=== PATIENT | female | born 1985 | race Caucasian/White ===

== ENCOUNTER → 2017-12-27 | Outpatient (CLI) | payer OTHER | LOC: FIMAGING 11:44 | PROVIDERS: ATTEND Obstetrics & Gynecology | DX: Z36.4 Encounter for antenatal screening for fetal growth retardation (principal); Z3A.20 20 weeks gestation of pregnancy; O34.219 Maternal care for unspecified type scar from previous cesarean delivery ==

== ENCOUNTER → 2018-03-07 | Outpatient (CLI) | payer OTHER | LOC: FIMAGING 12:17 | PROVIDERS: ATTEND Obstetrics & Gynecology | DX: O09.293 Supervision of pregnancy with other poor reproductive or obstetric history, third trimester (principal); Z3A.30 30 weeks gestation of pregnancy ==

== ENCOUNTER 2018-03-24 13:00 | Day surgery (SDC) | payer OTHER ==
[2018-03-24] MEDS ORDERED: ceFAZolin 2 GM/DEXTROSE 100 ML IV ONE (13:18)
[2018-03-24] MEDS ORDERED: LR 1,000 ML IV SCH (13:18)
--- NOTE | 2018-03-24 13:20 | PDHPUP ---
History & Physical Update H&P update statement: This history and physical update is based on an assessment of the patient which was completed after admission or registration (within 24 hours), but prior to the surgery/procedure. H&P update: H&P reviewed & patient examined, no change in patient's condition since H&P completed
[2018-03-24] MEDS ORDERED: BUPIVACAINE/EPI 0.5% 30 ML SDV ONE (13:24)
[2018-03-24] MEDS ORDERED: BUPIVACAINE 0.5% 30 ML SDV ONE (13:24)
[2018-03-24 13:33] LABS: PLATELET COUNT 167 10^3/uL (150-400)
[2018-03-24] MEDS ORDERED: PROPOFOL 200 MG/20 ML VIAL ONE ×2 (13:35)
[2018-03-24] MEDS ORDERED: BUPIVACAINE/EPI 0.25% 30 ML SDV ONE (13:36)
[2018-03-24] MEDS ORDERED: PROPOFOL/EMULSION 500 MG/50 ML BOTTLE IV ONE (13:36)
[2018-03-24] MEDS ORDERED: LIDOCAINE 2% 5 ML SDV ONE (13:40)
--- NOTE | 2018-03-24 13:42 | PDANEPAE ---
ANE History of Present Illness right knee scope in 32wk pt ANE Past Medical History - Cardiovascular History Hx Hypertension: No Hx Arrhythmias: No Hx Chest Pain: No Hx Coronary Artery / Peripheral Vascular Disease: No Hx CHF / Valvular Disease: No Hx Palpitations: No - Pulmonary History Hx COPD: No Hx Asthma/Reactive Airway Disease: No Hx Recent Upper Respiratory Infection: No Hx Oxygen in Use at Home: No Hx Sleep Apnea: No Sleep Apnea Screening Result - Last Documented: Negative - Neurologic History Hx Cerebrovascular Accident: No Hx Seizures: No Hx Dementia: No - Endocrine History Hx Diabetes: No - Renal History Hx Renal Disorders: No - Liver History Hx Hepatic Disorders: No - Neurological & Psychiatric Hx Hx Neurological and Psychiatric Disorders: No Neurological / Psychiatric History Comment: depression/anxiety - Cancer History Hx Cancer: No - Congenital Disorder History Hx Congenital Disorders: Yes Congenital History Comment: low BP post procedure. family melanoma,prostate - GI History Hx Gastrointestinal Disorders: Yes Gastrointestinal History Comment: reflux - Other Health History Other Health History: congested possible touch of cold. anemia. 32 wks - Chronic Pain History Chronic Pain: No - Surgical History Prior Surgeries: wisdom teeth. needed emergency 1st baby ANE Review of Systems Review of systems is: negative Review of Systems: - Exercise capacity METS (RN): 4 METS ANE Patient History - Allergies Allergies/Adverse Reactions: Sulfa (Sulfonamide Antibiotics) Allergy (Verified 03/23/18 15:27) Rash - Home Medications Home medications: home medication list seen and reviewed Home Medications: Aspirin EC 81 mg (*) 03/23/18 [Last Taken 03/22/18] Omeprazole 03/23/18 [Last Taken 03/24/18 10:00] Zoloft 50mg (*) 03/23/18 [Last Taken 03/24/18 10:00] - NPO status NPO Since - Liquids (Date): 03/24/18 NPO Since - Liquids (Time): 11:30 NPO Since - Solids (Date): 03/23/18 NPO Since - Solids (Time): 20:00 - Anes Hx Anes Hx: no prior problems - Smoking Hx Smoking Status: Never smoked ANE Labs/Vital Signs - Labs Result Diagrams: 03/24/18 13:20 - Vital Signs Blood Pressure: 107/68 Heart Rate: 79 Respiratory Rate: 16 O2 Sat (%): 99 Height: 168 cm Weight: 70 kg ANE Physical Exam - Airway Neck exam: FROM Mallampati Score: Class 1 Mouth exam: normal dental/mouth exam - Pulmonary Pulmonary: no respiratory distress - Cardiovascular Cardiovascular: regular rate and rhythym - ASA Status ASA Status: II ANE Anesthesia Plan Anesthesia Plan: spinal
[2018-03-24] MEDS ORDERED: ROPIVACAINE IU ONE (15:30)
[2018-03-24] MEDS ORDERED: ALBUTEROL 3 ML DEYVIAL IH PRN (15:34)
[2018-03-24] MEDS ORDERED: ACETAMINOPHEN 500 MG TAB PO PRN (15:34)
[2018-03-24] MEDS ORDERED: ONDANSETRON 4 MG/2 ML VIAL IVP PRN (15:34)
[2018-03-24] MEDS ORDERED: LR 500 ML IV PRN (15:34)
[2018-03-24] MEDS ORDERED: METOCLOPRAMIDE 10 MG/2 ML VIAL IVP PRN (15:34)
[2018-03-24] MEDS ORDERED: NALOXONE HCL 0.4 MG/ML INJ IVP PRN (15:34)
[2018-03-24] MEDS ORDERED: HYDROCODONE/APAP 5/325 TAB PO PRN (15:34)
[2018-03-24] MEDS ORDERED: PROMETHAZINE HCL 25 MG/ML INJ IVP PRN (15:34)
[2018-03-24] MEDS ORDERED: oxyCODONE IR 5 MG TAB PO PRN (15:34)
--- NOTE | 2018-03-24 15:34 | POSTANESTH ---
Post Anesthetic Evaluation Cardiovascular Status: Normal, Stable Respiratory Status: Normal, Stable Level of Consciousness/Mental Status: Can Participate in Eval, Alert and Oriented Pain Control: Adequate, Prn Tx Ordered Nausea/Vomiting Control: Adequate, Prn Tx Ordered Complications Possibly Related to Anesthesia: None Noted
--- NOTE | 2018-03-24 16:05 | POSTOPPROG ---
Post Op Note Date of Operation: 03/24/18 Surgeon: Darren Chung Anesthesiologist: MD Leora Anesthesia: Spinal Pre-op Diagnosis: R knee bucket gail medial meniscus tear Post-op Diagnosis: same Procedure: R knee arthroscopy, medial meniscus repair Inf/Abcess present in the surg proc area at time of surgery?: No EBL: Minimal
[2018-03-24 18:50] VITALS: BP 101/61
--- NOTE | 2018-03-29 17:50 | GOP ---
DATE OF OPERATION: 03/24/2018 SURGEON: Darren Chung MD ANIMAL RESCUER: None. ANESTHESIA: Spinal with mild IV sedation. PREOPERATIVE DIAGNOSIS: Right knee locked bucket-handle medial meniscus tear. POSTOPERATIVE DIAGNOSIS: Right knee locked bucket-handle medial meniscus tear. PROCEDURE PERFORMED: Right knee medial meniscus repair. FINDINGS: Exam under anesthesia revealed 5-10 degrees short of full extension with full flexion to 1 40. She is otherwise ligamentously stable. Diagnostic arthroscopy revealed intact cartilage in all 3 compartments and intact lateral meniscus and ACL. She did have a locked bucket handle meniscus in the intercondylar notch. This involved the posterior horn up through the anterior horn. The menisca l root itself was intact. SPECIMENS: None. ESTIMATED BLOOD LOSS: Minimal. INDICATIONS: The patient is a 32-year-old female in her 3rd trimester of . She noted click ing and mechanical symptoms prior to getting ; however, slipped on some ice, tweaking her kne e, which cause some pain, but was still able to ambulate. Later on that day, she bent down to pick u p her toddler and felt something snap and shift inside her knee, and then she was unable to fully ext end her knee. Clinically, the patient had medial joint line tenderness and mechanical block to full extension. MRI revealed a locked bucket-handle medial meniscus tear inhibiting motion, as well as ma loi ambulation difficult. We discussed treatment options including observation until the patient de livers versus acute surgery despite the risks of possibly inducing . It would be ve ry difficult and would not recommend waiting 2 months with a locked bucket handle meniscus tear at th e age of 32. The patient verbalized the understanding of the risks and benefits of the procedure, an d signed informed consent prior to the procedure. DESCRIPTION OF PROCEDURE: The patient was seen in the holding area. Operative site was signed. H a nd P verified and updated accordingly. heart tones and monitoring took place for 15 minutes pr ior to going back to the operating room. The patient was then taken operating room. Spinal anesthet ic was provided. She was placed in the supine position with a bump under her right hip for a slightl y decubitus position. Tourniquet was placed around the operative thigh. Operative lower extremity w as prepped and draped in the usual sterile fashion. Operative site was confirmed by signature. Time -out performed. Allergies reviewed. Antibiotics administered. Leg was exsanguinated with an Esmarch. Tourniquet inflated to 250 mmHg. Medial and lateral portals were marked out and infiltrated with 0.25% Marcaine with epinephrine. An 11 blade was used to establ norma the lateral portal. Arthroscope was introduced in the suprapatellar pouch. Diagnostic arthrosco py was performed. The locked bucket handle was immediately encountered in the intercondylar notch. Medial meniscus repair: A ball rasp was used to rasp the [place] footprint of the meniscus against ca psule to create bleeding for healing. The meniscus was reduced with a probe. Golden [employer] Nephew all-i nside FasT-Fix anchors were used in a vertical mattress orientation in the posterior horn of the medi al meniscus. Subsequently, inside-out suture fixation technique was used with a zone-specific device in the body and a portion of the anterior horn of the medial meniscus. Small incisions were made at the exit of the inside-out sutures. These were tied over the capsule with the knee in full extensio n. A probe was placed in to confirm stability of the medial meniscus. All instruments were then wit hdrawn from the joint. 30 cc of ropivacaine without epinephrine was injected into the joint. Portal s were closed with 3-0 Monocryl, as well as the exiting meniscal repair sutures. Dermabond and Steri -Strips were applied. The was then taken to the recovery room in stable condition. At the end the c ase, all surgical counts were correct. All critical portions of procedure performed by , Dr. Chung. This operative note was created by , and I was immediately available for emergency cross-coverage at all times. DRAINS: None COMPLICATIONS: None. IMPLANTS: Include [employer]hew FasT-Fix x3 and inside-out #2 FiberWire x3. TOURNIQUET TIME: 74 minutes. POSTOPERATIVE INSTRUCTION: Weightbearing as tolerated with the brace locked in full extension, unloc loi coming out of it to work on gentle range of motion immediately. /[id number]/MODL
== END 2018-03-24 19:40 | disposition home or self-care (01) ==
LOC: FSGY 13:00
PROVIDERS: ATTEND Orthopaedic Surgery
PROC: 0SBC4ZZ Excision of Right Knee Joint, Percutaneous Endoscopic Approach (ICD-10-PCS; principal; 2018-03-24 14:30)
DX: S83.211A Bucket-handle tear of medial meniscus, current injury, right knee, initial encounter (principal); O9A.213 Injury, poisoning and certain other consequences of external causes complicating pregnancy, third trimester; X50.9XXA Other and unspecified overexertion or strenuous movements or postures, initial encounter; O99.013 Anemia complicating pregnancy, third trimester; D64.9 Anemia, unspecified; Z3A.32 32 weeks gestation of pregnancy
CPT/HCPCS: J0690; J2704; J2795; L1832

== ENCOUNTER 2018-05-08 15:39 | Inpatient (IN) | payer OTHER ==
--- NOTE | 2018-05-04 12:51 | GHP ---
[f rep st] HISTORY AND PHYSICAL DATE OF ADMISSION: 05/09/2018 ADMITTING DIAGNOSES: 1. Intrauterine at 39 weeks. 2. Prior , declines trial of labor. 3. Umbilical vein varix. HISTORY OF PRESENT ILLNESS: The patient is a 32-year-old, 2, para 1-0-0 -1 at 39 weeks with an estimated due date of 05/16/2018 by last menstrual period 08/09/2017 and consistent with ultrasound done at 8 weeks and 2 days. The patient presents for a scheduled repeat section. The patient states good movement noted. She denies any leakage of fluid, vaginal bleeding or any contractions at this time. The patient has good care at [facility], and presented in her first trimester. is complicated by a previous which was done emergently secondary to intolerance to labor. The patient was induced at 38 weeks and 5 days secondary to IUGR. The patient has a large keloid scar from her previous C- section and wants the keloid scar removed at time of repeat . The patient had a level 2 ultrasound done in the which was normal and a posterior placenta. The patient has a history of OCD and anxiety disorder which was stable on 50 mg of Zoloft throughout the . She has been followed throughout by her psychiatrist who recommended the dose of Zoloft be increased to 75 mg secondary to a history of depression. She had serial growth scans done in the and most recent growth scan at 38 weeks revealed an estimated weight in 43rd percentile with normal fluid. The patient had subclinical hypothyroid with the first and thyroid function tests were checked with initial labs and normal. The patient developed anemia of and is tolerating iron. At 30 weeks , the patient underwent arthroscopic meniscus repair with no issues. At 35 weeks, the patient had an ultrasound done showing an umbilical vein varix. Patient saw [facility], who recommended a followup ultrasound, twice weekly NSTs, which have been reassuring and delivery at 39 weeks. The patient received both the flu vaccine as well as Tdap. GBS culture is negative. PAST OB HISTORY: In November 2015, she delivered a viable female infant at 38 weeks 5 days via . She was induced for IUGR and had emergent C- section secondary to intolerance to labor. PAST DIRECTOR NICU HISTORY: Age of menarche 16. Menstrual cycles are every 31 days for 5- 7 days. The patient denies a history of abnormal Pap smears or exposure to any sexually transmitted diseases. CURRENT MEDICATIONS: vitamins, Zoloft 50 mg, Omeprazole 20 mg, and an iron supplement. ALLERGIES: Sulfa, as a child she had a rash. PAST MEDICAL HISTORY: OCD, anxiety disorder, history of depression, and GERD. PAST SURGICAL HISTORY: in 2016 and a tonsillectomy as a child. FAMILY HISTORY: Maternal grandmother, melanoma. Father, prostate cancer. SOCIAL HISTORY: Patient is and lives with her and their daughter. She is in [place]. She denies any alcohol, tobacco or illicit drug use currently. LABS: First trimester H and H, 11.5 and 32.5, platelets 191. Blood type A positive, antibody negative. RPR nonreactive. Rubella immune. Hepatitis B surface antigen negative. HIV negative. TSH in 1st trimester 1.5. Varicella immune. UA, urine culture and UDS all negative. Pap smear, gonorrhea, and chlamydia cultures negative. Innatal screen normal. Single AFP negative. Third trimester H and H, 11.1 and 32.9. One hour Glucola 78. GBS culture is negative. REVIEW OF SYSTEMS: A 10-point review of systems is negative, pertinent positives noted in the HPI. PHYSICAL EXAMINATION: VITAL SIGNS: On admission vital signs are stable. Patient is afebrile. GENERAL: A well-nourished, well-developed female. Alert and oriented x3. No apparent distress. SKIN: Warm, dry without rash. NEURO: Grossly intact. CARDIOVASCULAR: Regular rate and rhythm. LUNGS: Clear to auscultation bilaterally. ABDOMEN: Soft, gravid, nontender. A Pfannenstiel incision that is well healed with a large keloid scar. PELVIC: Deferred. EXTREMITIES: Normal to inspection without calf tenderness or edema. ASSESSMENT/PLAN: The patient is a 32-year-old 2, para 1-0-0-1 at 39 weeks with a previous , declines a trial of labor, and umbilical vein varix. 1. Admit to Labor and Delivery for repeat and removal of keloid scar. 2. Surgical consents were on the chart and reviewed with the patient. Patient understands all risks of the surgery and wants to proceed. 3. Antibiotics [employer] consultant to operating room. 4. After removal of keloid scar, will inject Kenalog into skin incision to help with prevention of future keloid formation. 5. Sequential compression devices for deep venous thrombosis prophylaxis. 6. Will increase the Zoloft to 75 mg secondary to history of depression. /[id number]/MODL MTDD
[2018-05-08] MEDS ORDERED: LIDOCAINE 1% 300 MG/30 ML SDV SC PRN (15:56)
[2018-05-08] MEDS ORDERED: EPSOM SALT 454 GM TP PRN (15:56)
[2018-05-08] MEDS ORDERED: MISOPROSTOL 200 MCG TAB PR PRN (15:56)
[2018-05-08] MEDS ORDERED: IBUPROFEN 600 MG TAB PO PRN (15:56)
[2018-05-08] MEDS ORDERED: OLIVE OIL 118 ML BTL MISC PRN (15:56)
[2018-05-08] MEDS ORDERED: LR 1,000 ML IV PRN (15:56)
[2018-05-08] MEDS ORDERED: OXYTOCIN/RINGERS LACTATE 1,000 ML IV PRN (15:56)
[2018-05-08 16:50] LABS: PLATELET COUNT 154 10^3/uL (150-400)
[2018-05-08] MEDS ORDERED: ceFAZolin 2 GM/DEXTROSE 100 ML IV ONE (17:28)
[2018-05-08] MEDS ORDERED: LR 500 ML IV ONE (17:28)
[2018-05-08] MEDS ORDERED: AZITHROMYCIN IV 500 MG in NS 250 ML IV ONE (17:29)
[2018-05-08] MEDS ORDERED: LR 1,000 ML IV SCH (17:30)
[2018-05-08] MEDS ORDERED: TRIAMCINOLONE ACETONIDE 40 MG/ML VIAL IM ONE (17:31)
--- NOTE | 2018-05-08 17:49 | PDANEPAE ---
ANE History of Present Illness 32 to for c sx. Previous section now in labor Urgent per Dr Veronica MARTINES Past Medical History - Cardiovascular History Hx Hypertension: No Hx Arrhythmias: No Hx Chest Pain: No Hx Coronary Artery / Peripheral Vascular Disease: No Hx CHF / Valvular Disease: No Hx Palpitations: No - Pulmonary History Hx COPD: No Hx Asthma/Reactive Airway Disease: No Hx Recent Upper Respiratory Infection: No Hx Oxygen in Use at Home: No Hx Sleep Apnea: No Sleep Apnea Screening Result - Last Documented: Negative - Neurologic History Hx Cerebrovascular Accident: No Hx Seizures: No Hx Dementia: No - Endocrine History Hx Diabetes: No - Renal History Hx Renal Disorders: No - Liver History Hx Hepatic Disorders: No - Neurological & Psychiatric Hx Hx Neurological and Psychiatric Disorders: No Neurological / Psychiatric History Comment: depression/anxiety - Cancer History Hx Cancer: No - Congenital Disorder History Hx Congenital Disorders: Yes Congenital History Comment: low BP post procedure. family melanoma,prostate - GI History Hx Gastrointestinal Disorders: Yes Gastrointestinal History Comment: reflux - Other Health History Other Health History: congested possible touch of cold. anemia. 32 wks - Chronic Pain History Chronic Pain: No - Surgical History Prior Surgeries: wisdom teeth. needed emergency 1st baby ANE Review of Systems Review of Systems: - Exercise capacity METS (RN): 5 METS ANE Patient History - Allergies Allergies/Adverse Reactions: Sulfa (Sulfonamide Antibiotics) Allergy (Verified 03/23/18 15:27) Rash - Home Medications Home Medications: Omeprazole 03/23/18 [Last Taken 03/24/18 10:00] Zoloft 50mg (*) 03/23/18 [Last Taken 03/24/18 10:00] - NPO status NPO Since - Liquids (Date): 05/08/18 NPO Since - Liquids (Time): 14:30 NPO Since - Solids (Date): 05/08/18 NPO Since - Solids (Time): 12:00 - Anes Hx Anes Hx: no prior problems - Smoking Hx Smoking Status: Never smoked ANE Labs/Vital Signs - Labs Result Diagrams: 05/08/18 16:35 - Vital Signs Height: 5 ft 6.14 in Weight: 74 kg ANE Physical Exam - Airway Neck exam: FROM Mallampati Score: Class 2 Mouth exam: normal dental/mouth exam - Pulmonary Pulmonary: no respiratory distress - Cardiovascular Cardiovascular: regular rate and rhythym - ASA Status ASA Status: II, E ANE Anesthesia Plan Anesthesia Plan: spinal
[2018-05-08] MEDS ORDERED: morphINE PF 5 MG/10 ML INJ ONE (17:52)
[2018-05-08] MEDS ORDERED: OXYTOCIN 100 UNITS/10 ML VIAL ONE (17:53)
[2018-05-08] MEDS ORDERED: BUPIVACAINE/DEXTROSE 7.5MG/ML 2 ML SPINAL AMP SP ONE (17:55)
[2018-05-08] MEDS ORDERED: CITRIC ACID/SODIUM CITRATE 30 ML UDCUP PO ONE (17:58)
[2018-05-08] MEDS ORDERED: LR 500 ML IV SCH (18:00)
[2018-05-08] MEDS ORDERED: CITRIC ACID/SODIUM CITRATE 30 ML UDCUP ONE (18:01)
--- NOTE | 2018-05-08 18:01 | GHP ---
[f rep st] PREOP HISTORY AND PHYSICAL DATE OF ADMISSION: 05/08/2018 PREOPERATIVE DIAGNOSES: Intrauterine at 39 weeks gestation. Other preoperative diagnosis is history of previous low transverse section. She had a spontaneous rupture of membranes. Declines trial of labor. History of keloided scar from first section. Patient is a 32-year-old 2, para 1-0-0-1, who is 38-and-6/7-weeks gestation by last menstrual period of 08/09/2017, an estimated date of confinement of 05/16/2018. Patient has a history of a pr evious low transverse section which was done emergently for intolerance of labor. She is being induced for intrauterine growth restriction. Baby did not tolerate labor. She is a candid ate for a vaginal after section; however, she has declined. Patient was diagnosed wit h an umbilical artery varix at 34 weeks gestation. At 35 weeks gestation she saw [facility]. They said she is a candidate for a vaginal after section; however, due to her h istory of a previous section and recommending delivery by 39 weeks gestation, she had opted for a scheduled repeat low transverse section. Patient had spontaneous rupture of membranes this evening. A large amount of clear fluid was noted. Patient began having strong regular contrac tions but her cervix has not changed in the short period of time. After discussing risks and benefit s of vaginal after section versus repeat , patient and her have decid ed that they want to proceed with a repeat low transverse section. Risks and benefits have been extensively reviewed with the patient and patient has been properly consented. MEDICAL HISTORY: Significant for anxiety disorder, OCD, history of depression, gastroesop hageal reflux disease. MEDICATIONS: vitamins, Zoloft 50 mg, omeprazole 20 mg and an iron supplement. SURGICAL HISTORY: section in 2016, tonsillectomy as a child. ALLERGIES: Sulfa caused a rash as a child. SOCIAL HISTORY: Patient is . She denies tobacco, alcohol, or drug use. FAMILY MEDICAL HISTORY: Noncontributory. [employer]ER [employer]ASS HISTORY: Menarche 16. Cycles are every 31 days lasting 5-7 days. She is a 2, para 1 -0-0-1. In November 2015 she delivered a viable female infant at 38 weeks 5 days via . Sh e was induced for intrauterine growth restriction and had an emergency secondary to i ntolerance of labor. Patient denies any history of any abnormal Pap smears or sexually transmitted d iseases. REVIEW OF SYSTEMS: 10-point review of systems is negative with the exception of positive loss of flu id, positive contractions. There is positive movement. She denies any vaginal bleeding. She denies any headache or changes in vision. PHYSICAL EXAMINATION: VITAL SIGNS: Stable. GENERAL APPEARANCE: Alert and oriented x3. MUS[place] LETAL: Grossly intact. NEURO: Grossly intact. PSYCH: Appropriate affect. HEART: Regular. LUNG S: Clear to auscultation bilaterally. ABDOMEN: Gravid, nondistended, nontender. EXTREMITIES: Rev eal no calf tenderness or edema. PELVIC EXAM: She is fingertip and 50% effaced, and grossly rupture d. is in the vertex presentation and her heart tracing is category 1. LABS: Blood type B positive, antibody screen negative. GBS negative. HBsAg negative. HIV negative. Her 50 g glucose was 78. GBS is negative. ASSESSMENT AND PLAN: 32-year-old 2, para 1-0-0-1 at 38-and-6/7-weeks gestation with a histor y of a previous low transverse section and grossly ruptured. She declines trial of labor an d requests to proceed with a repeat low transverse section. Risks and benefits have been ex tensively reviewed with the patient. Patient has been properly consented. /[id number]/MODL
[2018-05-08] MEDS ORDERED: ONDANSETRON 4 MG/2 ML VIAL IVP PRN ×2 (18:28→18:41)
[2018-05-08] MEDS ORDERED: NALOXONE HCL 0.4 MG/ML INJ IVP PRN ×2 (18:28→18:41)
[2018-05-08] MEDS ORDERED: PHENYLEPHRINE HCL 100 MCG/ML SYR IVP PRN (18:41)
[2018-05-08] MEDS ORDERED: HYDROmorphONE/DILAUDID 1 MG/ML INJ IVP PRN (18:41)
[2018-05-08] MEDS ORDERED: fentaNYL 100 MCG/2 ML INJ IVP PRN (18:41)
--- NOTE | 2018-05-08 19:29 | OBDEL ---
Info Type: Repeat Presentation at Delivery: Vertex L&D Analgesia/Anesthesia Type: Spinal GBS+: No Intrapartum Medications: Discontinued Medications Generic Name Dose Route Start Last Admin Trade Name Angelica PRN Reason Stop Dose Admin Cefazolin Sodium/Dextrose 100 mls @ 200 mls/hr 05/08/18 17:28 05/08/18 17:54 Ancef IV 05/08/18 17:57 100 mls ONCALL ONE Administration Protocol Lactated Ringer's 500 mls @ 0 mls/hr 05/08/18 17:28 05/08/18 17:54 Lr IV 05/08/18 17:29 500 mls ONCE ONE Administration As Directed Azithromycin 500 mg/ Sodium 255 mls @ 255 mls/hr 05/08/18 17:29 05/08/18 18: 06 Chloride IV 05/08/18 18:28 255 mls ONCE ONE Administration Protocol Indications for Delivery: Spontaneous Labor Vaginal Delivery - Labor and Delivery Onset of Contractions Date: 05/08/18 Onset of Contractions Time: 13:00 Operative Report - Delivery Pre-op Diagnoses: IUP 38 6/7 weeks, history of prior c section, spontaneous labor, umbilical varix, declines trial of labor Post-op Diagnoses: same as preoperative plus occiput posterior History of Prior Section: Yes Number of Prior Sections: 1 Nulliparous Prior to Delivery: No Indications for Prior Section: Non-reas. Status Indications for Current Section: Elective/Repeat Procedure: Unscheduled, Low Transverse Surgeon: Veronica Martin Field Identification Specialist: Mara Agudelo Anesthesiologist: Javier Yang EBL: 800 Data EVANS: 05/16/18 Gestational Age: 38 week(s) and 6 day(s) [place] Delivery Date: 05/08/18 Delivery Time: 18:35 Sex of Infant: Female Score (1 Min): 8 Score (5 Min): 9 ICD10 Worksheet Patient Problems: Problems Problem Status Onset Bucket handle tear of medial meniscus of right knee Acute
[2018-05-08] MEDS ORDERED: MAGNESIUM HYDROXIDE 30 ML UDCUP PO PRN (19:31)
[2018-05-08] MEDS ORDERED: LACTULOSE 20 GM/30 ML UDCUP PO PRN (19:31)
[2018-05-08] MEDS ORDERED: POLYETHYLENE GLYCOL 3350 17 GM PKT PO PRN (19:31)
[2018-05-08] MEDS ORDERED: KETOROLAC 30 MG/1 ML SDV ONE (19:41)
[2018-05-08] MEDS: KETOROLAC 30 MG/1 ML SDV IVP SCH (19:45)
--- NOTE | 2018-05-08 21:41 | GOP ---
[f rep st] OPERATIVE REPORT DATE OF OPERATION: 05/08/2018 SURGEON: Veronica Martin DO CAGE UNLOADER: Mara Agudelo CNM, proctored by JOSEPH Cardona. ANESTHESIA: Spinal with Duramorph. ANESTHESIOLOGIST: Dr. Yang. PREOPERATIVE DIAGNOSIS: Intrauterine at 38-6/7 weeks gestation, history of previous low tr ansverse section, spontaneous rupture of membranes, active labor, umbilical varix, dec lines trial of labor. POSTOPERATIVE DIAGNOSIS: Intrauterine at 38-6/7 weeks gestation, history of previous low t ransverse section, spontaneous rupture of membranes, active labor, umbilical varix, de clines trial of labor, plus thin lower uterine segment and baby in occiput posterior presentation. PROCEDURE PERFORMED: Repeat low transverse section with excision of keloid scar. FINDINGS: 1. Viable female in the occiput posterior presentation, delivered at 7:25 p.m. Apgars 8 and 9. 2. Intact placenta with 3-vessel cord. 3. Normal ovaries, uterus and tubes. ESTIMATED BLOOD LOSS: 800 cc. INDICATIONS: Patient is a 32 year old 2, para 1-0-0-1, who is 38-6/7 weeks' gestation. She has a history of a previous low transverse section for non-reassuring status. She was diagnosed with a umbilical varix at 35 weeks gestation. Recommendation by [facility] was to be delivered around 39 weeks gestation because she is not a candidate for induction of l abor. She had planned to have a repeat section, but her membranes spontaneously ruptured th is evening, so she presented to Labor and Delivery. We discussed options of vaginal after cesa rean section versus repeat section. The patient elected to proceed with a repeat low transv erse section. Risks and benefits of the procedure were reviewed with the patient. The roselyn ent was properly consented in. DESCRIPTION OF PROCEDURE: Patient was taken to the operating room with intravenous fluids in place. She was given 2 g of Ancef and 500 mg of gentamicin. The patient was then seated on the operating r oom table where spinal anesthesia was obtained. She was then repositioned in the dorsal supine posit ion with a leftward tilt. A Edouard catheter was then placed. Venodynes were placed on her lower extr emities. She was then prepped and draped in normal sterile fashion. Anesthesia was assessed and fou nd to be adequate. A Pfannenstiel skin incision was then made 2 fingerbreadths above the pubic symph ysis. The very thick keloid scar was then excised without difficulty. The incision was then carried through to the underlying layer of fascia with the Bovie. The fascia was then nicked in the midline , and the fascial incision was extended laterally. The superior aspect of the fascial incision was g rasped with a Malika, tented up, and the underlying rectus muscle dissected off bluntly and with the Bovie. Attention was then turned to the inferior aspect of the fascial incision, which in a similar fashion was grasped with a Malika, tented up, and the underlying rectus muscle dissected off bluntly and with the Bovie. The rectus muscle was then in the midline. The peritoneum was then id entified, entered sharply with the Metzenbaum scissors and extended superiorly and inferiorly with ex cellent visualization of the bladder. The bladder blade was then inserted. The lower uterine segmen t was noted to be very thin. The vesicouterine peritoneum was then identified, tented up, and entere d sharply with the Metzenbaum scissors. The incision was extended laterally, and bladder flap was cr eated digitally. The bladder blade was then reinserted. The uterus was then incised in low transver se fashion with a scalpel, and the uterine incision was extended laterally. Clear fluid was noted. The infant was noted to be in the occiput posterior presentation. The infant was then delivered thro ugh the incision without difficulty. Delayed cord clamping x1 was performed. Cord was then clamped x2 and cut. Cord blood was obtained. The infant was handed off to awaiting nurse practitio ner. Intact placenta with 3-vessel cord delivered without difficulty. The uterus was then exteriori zed and cleared of all clots and debris. The uterus was then wrapped in a moist laparotomy sponge. Ovaries, uterus and tubes were unremarkable. The 0 Vicryl stitch was used to close the uterine incis ion. A 2nd 0 Vicryl stitch was used to imbricate the uterine incision. An additional 0 Vicryl stitc h was used to achieve hemostasis on the lower uterine segment. The bladder was remote from the hyste rotomy site. The gutters were cleared of all clots and debris. Uterus was then returned to the roselyn ent's abdomen. The peritoneum was reapproximated with 3-0 Vicryl in a running fashion. Rectus muscl e was reapproximated with 2-0 Vicryl in a running fashion. The fascia was closed with 0 Vicryl in a running fashion. Silvia's fascia was reapproximated with 2-0 Vicryl in a running fashion. Subcuticu lar tissue was reapproximated with 3-0 Vicryl in a running fashion. The skin was then closed with st aples. The skin was then injected with 40 mg of Kenalog. Sponge, lap, and needle count correct x2. The patient was transported to recovery room in stable condition. /[id number]/MODL
[2018-05-08] MEDS ORDERED: SIMETHICONE 80 MG TAB CHEW PO PRN (22:53)
[2018-05-08] MEDS: ACETAMINOPHEN 325 MG TAB PO SCH (23:22)
[2018-05-09] MEDS: SENNOSIDES/DOCUSATE SODIUM TAB PO SCH ×3 (00:42→19:44)
[2018-05-09] MEDS: KETOROLAC 30 MG/1 ML SDV IVP SCH ×3 (01:42→14:09)
[2018-05-09] MEDS: ACETAMINOPHEN 325 MG TAB PO SCH ×3 (05:16→18:42)
[2018-05-09] MEDS ORDERED: TRIAMCINOLONE ACETONIDE 40 MG/ML VIAL IM ONE (06:00)
--- NOTE | 2018-05-09 09:42 | OBPP ---
Progress Note Assessment/Plan: Assessment: 1) s/p RLTCS and removal of keloid scar in setting of SROM, active labor POD # 1 - pt is stable 2) Anemia - pt is asymptomatic 3) OCD/Anxiety/history of PPD with G1 - will start Zoloft Plan: Continue routine post-op care Encourage ambulation and IS Will start Zoloft 75mg Will start iron BID, continue colace Dressing may be removed later this evening and pt may shower Plan for d/c home in 24-48 hours 05/09/18 09:49 Subjective/ Course: 05/09/18 09:48 Pt seen and examined. Doing well, with no complaints. Pain is well controlled with IV Toradol. She just had something to eat-no issues, strong in place, no flatus yet. Denies any f/c/n/v/CP or SOB. Mod lochia. BF is going well so far. Mood is stable. Objective: 05/09/18 04:05 Patient ABO/Rh A POSITIVE 05/08/18 16:35 Temp Pulse Resp BP Pulse Ox 36.1 C 77 16 95/63 L 96 05/09/18 08:00 05/09/18 08:00 05/09/18 08:00 05/09/18 08:00 05/09/18 08:00 Uterine Position/Fundal Height: Umbilicus -1 Uterine Tone: Firm Physical Exam - Physical Exam General Appearance: WD/WN, alert, no apparent distress Respiratory: lungs clear, normal breath sounds Cardiac/Chest: regular rate, rhythm Abdomen: normal bowel sounds, non-tender (appropriate tenderness), soft, flatus (none), incision (C/D/I with dressing intact), dressing (C/D/I with no shadowing ) Extremities: non-tender, normal inspection Skin: warm/dry, pallor Neuro/Psych: alert, normal mood/affect, oriented x 3
[2018-05-09] MEDS: SERTRALINE HCL 25 MG TAB PO SCH (10:27)
[2018-05-09] MEDS: SIMETHICONE 80 MG TAB CHEW PO SCH ×3 (14:08→19:44)
[2018-05-09] MEDS: oxyCODONE IR 5 MG TAB PO PRN ×3 (14:19→22:11)
[2018-05-09] MEDS: IBUPROFEN 600 MG TAB PO SCH (19:44)
[2018-05-09] MEDS: FERRO-SEQUELS 65 MG TAB.ER PO SCH (19:45)
[2018-05-10] MEDS: IBUPROFEN 600 MG TAB PO SCH ×4 (01:14→19:30)
[2018-05-10] MEDS: ACETAMINOPHEN 325 MG TAB PO SCH ×4 (01:15→19:30)
[2018-05-10] MEDS: oxyCODONE IR 5 MG TAB PO PRN ×5 (03:24→21:24)
--- NOTE | 2018-05-10 09:32 | OBPP ---
Progress Note Assessment/Plan: Assessment:32 now 2, POD#2, doing well - had difficulty voiding last night , but is voiding well this morning. Plan: Continue routine post op cares. Anticipate dc home tomorrow. Rosamaria Lopez MD, [facility] 05/10/18 12:35 Subjective/ Course: 05/09/18 09:48 Pt seen and examined. Doing well, with no complaints. Pain is well controlled with IV Toradol. She just had something to eat-no issues, strong in place, no flatus yet. Denies any f/c/n/v/CP or SOB. Mod lochia. BF is going well so far. Mood is stable. 05/10/18 12:38 Pt doing well. Had difficulty voiding last night, was catheterized, and now is voiding fine on her own. Pain well controlled. Ambulating without difficulty. Tolerating regular diet. BF going well so far. Objective: 05/09/18 04:05 Patient ABO/Rh A POSITIVE 05/08/18 16:35 Temp Pulse Resp BP Pulse Ox 36.3 C 74 14 96/59 L 95 05/10/18 01:15 05/10/18 01:15 05/10/18 01:15 05/10/18 01:15 05/10/18 01:15 gen - pleasant, NAD CV - RRR chest - CTAB abd - + NABS, inc - C/D/ I with neetu, fundus firm at u-2 and NT ext - calves NT, Gladys's neg Uterine Position/Fundal Height: Umbilicus -2 Uterine Tone: Firm
[2018-05-10] MEDS: SIMETHICONE 80 MG TAB CHEW PO SCH ×3 (10:25→21:24)
[2018-05-10] MEDS: FERRO-SEQUELS 65 MG TAB.ER PO SCH ×2 (10:25→19:30)
--- NOTE | 2018-05-10 12:16 | POSTANESTH ---
Post Anesthetic Evaluation Cardiovascular Status: Normal, Stable Respiratory Status: Normal, Stable Level of Consciousness/Mental Status: Can Participate in Eval Pain Control: Adequate, Prn Tx Ordered Nausea/Vomiting Control: Adequate, Prn Tx Ordered Complications Possibly Related to Anesthesia: None Noted
[2018-05-10] MEDS: SERTRALINE HCL 25 MG TAB PO SCH (13:31)
[2018-05-10] MEDS: SENNOSIDES/DOCUSATE SODIUM TAB PO SCH ×2 (17:23→19:31)
[2018-05-10] MEDS: BISACODYL 10 MG SUPP PR PRN (19:30)
[2018-05-10 19:50] VITALS: BP 107/68
[2018-05-11] MEDS: oxyCODONE IR 5 MG TAB PO PRN ×3 (01:27→11:39)
[2018-05-11] MEDS: IBUPROFEN 600 MG TAB PO SCH ×2 (01:27→09:05)
[2018-05-11] MEDS: ACETAMINOPHEN 325 MG TAB PO SCH ×2 (01:27→09:05)
[2018-05-11] MEDS: FERRO-SEQUELS 65 MG TAB.ER PO SCH (09:04)
[2018-05-11] MEDS: SENNOSIDES/DOCUSATE SODIUM TAB PO SCH (09:04)
[2018-05-11] MEDS: BISACODYL 10 MG SUPP PR PRN (09:21)
--- NOTE | 2018-05-11 10:19 | OBPP ---
Progress Note Assessment/Plan: Assessment: 32 y/o POD #3 s/p Rpt LTCS doing well. Plan: D/c home today with Rx Ibuprofen, Oxy and bowel protocol instructions. She is to continue iron supplements and PNV. Follow-up @ [facility] 2,4 and 6 weeks. Call for fever, heavy vaginal bleeding, abnormal incisional d/c or other concerns. 05/11/18 10:17 Subjective/ Course: 05/09/18 09:48 Pt seen and examined. Doing well, with no complaints. Pain is well controlled with IV Toradol. She just had something to eat-no issues, strong in place, no flatus yet. Denies any f/c/n/v/CP or SOB. Mod lochia. BF is going well so far. Mood is stable. 05/10/18 12:38 Pt doing well. Had difficulty voiding last night, was catheterized, and now is voiding fine on her own. Pain well controlled. Ambulating without difficulty. Tolerating regular diet. BF going well so far. 05/11/18 10:15 Pt is doing well. Her incisional pain is well controlled with Ibuprofen, Tylenol and Oxy. She is having gas pain and trying to have a BM. She is trying Senna and Dulculax suppository. She may try Genoveva Lax, or Milk of Magnesia if this doesn't work. Breast feeding is going well. Baby has a good latch and she feels her milk coming in. They feel ready to d/c home. Objective: 05/09/18 04:05 Patient ABO/Rh A POSITIVE 05/08/18 16:35 Temp Pulse Resp BP Pulse Ox 36.7 C 75 16 107/68 96 05/10/18 19:50 05/10/18 19:50 05/10/18 19:50 05/10/18 19:50 05/10/18 19:50 Uterine Position/Fundal Height: Umbilicus -2 Uterine Tone: Firm Physical Exam - Physical Exam General Appearance: alert, no apparent distress Neck: non-tender, full range of motion, supple Respiratory: chest non-tender, lungs clear, normal breath sounds Cardiac/Chest: regular rate, rhythm Abdomen: normal bowel sounds, incision (c/d/i) Extremities: swelling (no), Gladys's sign (neg)
--- NOTE | 2018-05-11 10:20 | OBGCSDC ---
General Delivery Information - General Info : 2 Para: 2 Abortions: 0 Type: Repeat L&D Analgesia/Anesthesia Type: Spinal Admission Date: 05/08/18 Labs: Patient ABO/Rh A POSITIVE 05/08/18 16:35 Hct 29.1 % (38.0-47.0) L 05/09/18 04:05 - Hospital Course : 05/09/18 09:48 Pt seen and examined. Doing well, with no complaints. Pain is well controlled with IV Toradol. She just had something to eat-no issues, strong in place, no flatus yet. Denies any f/c/n/v/CP or SOB. Mod lochia. BF is going well so far. Mood is stable. 05/10/18 12:38 Pt doing well. Had difficulty voiding last night, was catheterized, and now is voiding fine on her own. Pain well controlled. Ambulating without difficulty. Tolerating regular diet. BF going well so far. 05/11/18 10:15 Pt is doing well. Her incisional pain is well controlled with Ibuprofen, Tylenol and Oxy. She is having gas pain and trying to have a BM. She is trying Senna and Dulculax suppository. She may try Genoveva Lax, or Milk of Magnesia if this doesn't work. Breast feeding is going well. Baby has a good latch and she feels her milk coming in. They feel ready to d/c home. - Delivery Providers Surgeon: Veronica Martin Publishing Manager: Mara Agudelo Anesthesiologist: Javier Yang - Delivery Number of Prior Sections: 1 Indications for Current Section: Elective/Repeat Surgical Procedures: Unscheduled, Low Transverse EBL: 800 Pelican Data EVANS: 05/16/18 Gestational Age: 39 week(s) and 2 day(s) Gam[place] Delivery Date: 05/08/18 Delivery Time: 18:35 Sex of Infant: Female Pelican Weight (gm): 3320 g Score (1 Min): 8 Score (5 Min): 9 Discharge Information - Discharge Information Prescriptions: oxyCODONE IR [Oxycodone Ir (*)] 5 - 10 mg PO Q4HRS PRN #30 tab PRN Reason: Pain, Severe Able To Take Po Ibuprofen [Motrin (*)] 600 mg PO Q6H #30 tab Iron/Vit C/Docusate [Irene-Sequels 65 mg (*)] 1 each PO BID #60 tab.er Sertraline HCl [Zoloft 25mg (*)] 75 mg PO DAILY #60 tab Condition: Good Instruction/Follow Up: Two Weeks, Four Weeks, Six Weeks
[2018-05-11] MEDS: SERTRALINE HCL 25 MG TAB PO SCH (12:13)
[2018-05-11] MEDS: SIMETHICONE 80 MG TAB CHEW PO SCH (12:14)
== END 2018-05-11 14:00 | disposition home or self-care (01) | DRG 788 ==
LOC: FLD 15:39 → FOB 22:25
PROVIDERS: ADMIT Obstetrics & Gynecology; ATTEND Obstetrics & Gynecology
PROC: 10D00Z1 Extraction of Products of Conception, Low, Open Approach (ICD-10-PCS; principal; 2018-05-08)
DX: O34.219 Maternal care for unspecified type scar from previous cesarean delivery (principal); O69.5XX0 Labor and delivery complicated by vascular lesion of cord, not applicable or unspecified; O32.8XX0 Maternal care for other malpresentation of fetus, not applicable or unspecified; O99.340 Other mental disorders complicating pregnancy, unspecified trimester; F41.9 Anxiety disorder, unspecified; Z3A.39 39 weeks gestation of pregnancy; Z37.0 Single live birth
CPT/HCPCS: J0456; J0690; J1885; J2274; J2590; J3301